=== PATIENT | male | born 1960 | race African-American/Black ===

== ENCOUNTER 2018-04-29 11:19 | Observation (INO) | payer BC ==
[~2018-04-29] VITALS: Ht 177.8 cm; Wt 66.5 kg
[~2018-04-29 11:19] MED LIST: FLEXERIL10 MG PO; GABAPENTIN100 MG PO; LEVITRA10 MG PO; LORTAB 7.5 PO; LOTRISONE; LOTRISONE EX; LOTRISONE TOP; MOTRIN800 MG/TAB PO; NAPROSYN500 MG OR; OMEPRAZOLE20 MG PO; PROBENECID500 MG PO; ROBAXIN-750750 MG PO; TIZANIDINE HCL4 MG PO; VIAGRA100 MG PO
--- NOTE | 2018-04-29 11:40 | NUR ---
PT ARRIVED TO MS2 VIA WHEELCHAIR BY VOLUNTEER. PT ALERT AND ORIENTED X3, AMBULATORY. PT ORIENTED TO ROOM AND CALL LIGHT, GOWN PROVIDED AND PT ALLOWED TO CHANGE IN BATHROOM. DISCUSSED POC, RESP EVEN AND UNLABORED. NO SIGNS OF DISTRESS NOTED, RESP EVEN AND UNLABORED. AWS SOLUTION ARCHITECT TO BEDSIDE FOR LAB DRAW. CALL LIGHT IN REACH,CONTINUE TO MONITOR.
[2018-04-29 11:50] VITALS: BP 127/98
[2018-04-29 12:18] LABS: HEMATOCRIT 43.9 % (39.0-50.0); HEMOGLOBIN 15.1 g/dl (14.0-18.0); IMMATURE GRANULOCYTES 0.2 % (0.0-5.0); MEAN CELL VOLUME 91.6 fL CALC (80.0-100.0); MEAN CORPUSCULAR HGB 31.5 pG CALC (26.0-32.0); MEAN CORPUSCULAR HGB CONC 34.4 g/L CALC (32.0-36.0); NEUT# 5.11 thou/uL (1.82-7.42); RED BLOOD COUNT 4.79 mill/uL (4.70-6.10)
[2018-04-29 12:32] LABS: ALBUMIN 4.5 g/dL (3.2-5.0); ALKALINE PHOSPHATASE 84 u/l (38-126); ANION GAP 16 (6-22 (CALC)); BILIRUBIN, TOTAL 0.5 mg/dL (0.0-1.4); BUN 9 mg/dL (9-20); BUN/CREATININE RATIO 10 (12-20 (CALC)); CARBON DIOXIDE 24 mmol/l (22-30); CHLORIDE 105 mmol/l (95-108); CREATININE 0.8 mg/dL (0.7-1.3); GFR > 60 ML/MIN (>=60 (CALC)); GFR FOR AFR.AMER. > 60 ML/MIN (>=60 (CALC)); MAGNESIUM 2.1 mg/dL (1.6-2.3); POTASSIUM 3.8 mmol/l (3.5-5.1); SGOT/AST 25 u/l (17-59); SODIUM 141 mmol/l (137-146); TOTAL PROTEIN 8.4 g/dL (6.3-8.2)
--- NOTE | 2018-04-29 12:47 | NUR ---
PT TAKEN DOWN FOR ECHO, CONTINUE TO MONITOR.
--- NOTE | 2018-04-29 13:17 | NUR ---
PT RETURNED FROM RADIOLOGY EXAMS. VISITOR AT BEDSIDE.
[2018-04-29] MEDS ORDERED: VALIUM5 MG PO (14:25)
[2018-04-29 15:39] VITALS: BP 133/85
--- NOTE | 2018-04-29 17:17 | NUR ---
ER CALLED CLINCAL SUPPORT TEAM HR SUSTAINED AT 218. SUPPORT TEAM ARRIVED EKG OBTAINED. UNABLE TO GET BP BUT HR 220, PT DENIES ANY CP. VAGAL MANEAVER ATTEMPTED HR STILL ELEVATED. CARATOID MASSAGE @ 1720. CRASH CART TO BEDSIDE AND PT PLACED ON PADS. CALLED @ 1723 NOTIFIED OF CLINICAL SUPPORT TEAM TO BEDSIDE, HR 218, ORDERS FOR ADENOSINE 6MG AND TRANSFER PT TO ICU, ADENOSINE IV PUSH GIVEN BY JOHN JONES @ 1725. HR DOWN TO 120. PT STABLE TRANSFERED TO ICU BED 5. REPORT GIVEN TO ESTER JONES.
[2018-04-29 17:30] VITALS: BP 142/87
--- NOTE | 2018-04-29 17:30 | NUR ---
PT TRANSFERRED TO ICU BED 5 FROM MED SURG POST ADENOSINE ADMINSITRATION FOR SVT RATE 200+, PT IS ALERT AND ORIENTED, DENIES PAIN OR DISCOMFORT, LUNGS CLEAR AND NO SHORTNESS OF BREATH OR DISTRESS NOTED, ABD SOFT AN DBS ACTIVE, SKIN WARM AND DRY WITH NO BREAKDOWN, NO EDEMA NOTED, BP STABLE SEE INTERVENTIONS TELE CURRENTLY READING SR AT RATE INT HE 80-100'S TEMP 99.1 IV ACCESS 20G IN RFA SALINE LOCKED. ALL MONITORING EQUIPMENT EXPLAINED PRIOR TO APPLICATION, ORIENTED TO ROOM AND UNIT, SAFETY MEASURES INTRODUCED, WILL CONTINUE TO MONITOR.
[2018-04-29 17:45] VITALS: BP 140/97
--- NOTE | 2018-04-29 17:45 | NUR ---
EDUARDO PIERSON IN TO SEE PATIENT, PLAN OF CARE DISCUSSED INCLUDING TRANSFER TO [facility], PT VERBALIZES AGREEANCE AND UNDERSTANDING, WILL CONTINUE TO MONITOR
--- NOTE | 2018-04-29 17:45 | NUR ---
SPOKE WITH (HOSPITALIST AT [facility] [phone]) VIA TELEPHONE FOR TRANSFER OF PATIENT.
--- NOTE | 2018-04-29 17:55 | NUR ---
DAUGHTER AND SPOUSE AT BEDSIDE AND AWARE OF PLANNED TRANSFER.
--- NOTE | 2018-04-29 17:57 | NUR ---
ATTEMPTED TO CALL FAMILY TO NOTIFY OF TRANSFER, NO ANSWER.
--- NOTE | 2018-04-29 17:59 | NUR ---
HOUSE SUPERVIOR CALLED FROM [facility], PT ACCEPETANCE VERBALIZED AND BED ASSIGNMENT GIVEN ROOM 321 BED 2 IN PCU IS ACCEPTING PHYSICIAN WITH DR. GOMEZ CONSULTING DESKTOP OPERATOR
[2018-04-29 18:00] VITALS: BP 126/83
[2018-04-29 18:15] VITALS: BP 119/91
--- NOTE | 2018-04-29 18:22 | NUR ---
PT HAS HAD FEWQ PERIODS OF HEART RATE INCREASING TO 130'S LASTING <60 SECONDS, PT DENIES CHEST PAIN, DIZZINESS SHORTNESS OF BREATH OR ANY COMPLAINTS.
--- NOTE | 2018-04-29 19:00 | NUR ---
[facility] ARRIVES TO TRANSPORT PATIENT TO [facility].
--- NOTE | 2018-04-29 19:15 | NUR ---
PT. LEFT VIA [place] [place] AT THIS TIME.
--- NOTE | 2018-04-29 19:35 | NUR ---
REPORT CALLED TO KAREN REED AT [facility].
== END 2018-04-29 19:15 | DRG 309 ==
LOC: ICU 11:19 → MS2 11:19 → ICU 17:30
PROVIDERS: ADMIT Internal Medicine Geriatric Medicine; ATTEND Internal Medicine Geriatric Medicine
DX: I49.1 Atrial premature depolarization (principal); I47.1 Supraventricular tachycardia; I49.3 Ventricular premature depolarization; I10 Essential (primary) hypertension; M19.90 Unspecified osteoarthritis, unspecified site; F41.1 Generalized anxiety disorder; G89.29 Other chronic pain; M54.5 Low back pain
CPT/HCPCS: G0378; G0379; J0153

== ENCOUNTER 2018-10-26 16:03 | Observation (INO) | payer BC ==
[~2018-10-26] VITALS: Ht 177.8 cm; Wt 74.0 kg
[~2018-10-26 16:03] MED LIST changes: +VALIUM5 MG PO
[2018-10-26 16:18] VITALS: BP 147/88
[2018-10-26 16:51] LABS: HEMATOCRIT 39.4 % (39.0-50.0); HEMOGLOBIN 13.2 g/dl (14.0-18.0); MEAN CELL VOLUME 92.9 fL CALC (80.0-100.0); MEAN CORPUSCULAR HGB 31.1 pG CALC (26.0-32.0); MEAN CORPUSCULAR HGB CONC 33.5 g/L CALC (32.0-36.0); RED BLOOD COUNT 4.24 mill/uL (4.70-6.10); RED CELL DISTRI WIDTH 14.7 % (11.5-15.5)
--- NOTE | 2018-10-26 17:00 | NUR ---
PT AMBULATED TO MS2; REGISTRATION STAFF FOR ASSISTANCE. VS DONE. PT A/O X3. SPEECH IS CLEAR. PERRLA. RESP EVEN AND UNLABORED. LUNG SOUNDS CLEAR. BOWEL SOUNDS ACTIVE X4. STRONG RADIAL AND PEDAL PULSES. #22 RH STATRTED BY KAREN HANNON. JACINDA MUSTAFA. IV SITE HEALTHY. PT HAS +2 EDEMA TO LT FOOT; SMALL TEAR BETWEEN LAST TWO TOES. PT DENIES ANY PAIN OR NEEDS. POC DISCUSSED. SAFETY PRECAUTIONS IN PLACE. CALL LIGHT IN REACH. WILL CONTINUE TO MONITOR.
[2018-10-26 17:17] LABS: ANION GAP 10 (6-22 (CALC)); BUN 11 mg/dL (9-20); BUN/CREATININE RATIO 13 (12-20 (CALC)); CARBON DIOXIDE 26 mmol/l (22-30); CHLORIDE 106 mmol/l (95-108); CREATININE 0.8 mg/dL (0.7-1.3); GFR > 60 ML/MIN (>=60 (CALC)); GFR FOR AFR.AMER. > 60 ML/MIN (>=60 (CALC)); POTASSIUM 3.9 mmol/l (3.5-5.1); SODIUM 138 mmol/l (137-146)
--- NOTE | 2018-10-26 18:10 | NUR ---
PT TRANSPORT TO XRAY VIA WC IN STABLE CONDITION
[2018-10-26 18:20] LABS: URINE BILIRUBIN - DIPSTICK NEGATIVE (NEGATIVE); URINE BLOOD DIPSTICK NEGATIVE (NEGATIVE); URINE COLOR YELLOW; URINE GLUCOSE - DIPSTICK NEGATIVE (NEGATIVE); URINE KETONE NEGATIVE (NEGATIVE); URINE LEUK ESTERASE NEGATIVE (NEGATIVE); URINE NITRITE - DIPSTICK NEGATIVE (Negative); URINE PH 5.5 (4.5-8.0); URINE PROTEIN - DIPSTICK NEGATIVE (NEG-TRACE); URINE SPECIFIC GRAVITY 1.025; URINE UROBILINOGEN - DIPSTICK 0.2 E.U./dL (0.2)
[2018-10-26 19:00] VITALS: BP 137/78
--- NOTE | 2018-10-26 19:37 | NUR ---
REPORT FROM ALEXANDRA CHAPMAN. PT RESTING IN BED. ALERT AND ORIENTED. PT DENIES ANY PAIN OR DISCOMFORT. NO DISTRESS NOTED. RESPIRATIONS EVEN AND UNLABORED. IV SITE APPEARS HEALTHY. DISCUSSED POC. PT VERBALIZED UNDERSTANDING. CALL LIGHT WITHIN REACH. WILL CONTINUE TO MONITOR.
--- NOTE | 2018-10-26 23:26 | NUR ---
PT RESTING IN BED WITH EYES CLOSED. NO DISTRESS NOTED. CALL LIGHT WITHIN REACH. WILL CONTINUE TO MONITOR.
--- NOTE | 2018-10-27 03:34 | NUR ---
MEDICATED FOR PAIN IN LEFT FOOT 10/05. PT REFUSED TO ELEVATE ON PILLOW, FOOT OF BED ELEVATED AT THIS TIME. NO DISTRESS NOTED. CALL LIGHT WITHIN REACH. WILL CONTINUE TO MONITOR.
[2018-10-27 04:03] VITALS: BP 126/62
[2018-10-27 06:00] LABS: HEMATOCRIT 38.8 % (39.0-50.0); HEMOGLOBIN 12.6 g/dl (14.0-18.0); IMMATURE GRANULOCYTES 0.3 % (0.0-5.0); MEAN CELL VOLUME 94.4 fL CALC (80.0-100.0); MEAN CORPUSCULAR HGB 30.7 pG CALC (26.0-32.0); MEAN CORPUSCULAR HGB CONC 32.5 g/L CALC (32.0-36.0); NEUT# 4.64 thou/uL (1.82-7.42); RED BLOOD COUNT 4.11 mill/uL (4.70-6.10); RED CELL DISTRI WIDTH 14.9 % (11.5-15.5)
[2018-10-27 06:25] LABS: ALKALINE PHOSPHATASE 77 u/l (38-126); ANION GAP 7 (6-22 (CALC)); BILIRUBIN, TOTAL 0.5 mg/dL (0.0-1.4); BUN 6 mg/dL (9-20); BUN/CREATININE RATIO 8 (12-20 (CALC)); CARBON DIOXIDE 28 mmol/l (22-30); CHLORIDE 109 mmol/l (95-108); CREATININE 0.8 mg/dL (0.7-1.3); GFR > 60 ML/MIN (>=60 (CALC)); GFR FOR AFR.AMER. > 60 ML/MIN (>=60 (CALC)); POTASSIUM 4.2 mmol/l (3.5-5.1); SGOT/AST 18 u/l (17-59); SODIUM 141 mmol/l (137-146)
[2018-10-27 06:30] LABS: ALBUMIN 3.4 g/dL (3.2-5.0); TOTAL PROTEIN 6.6 g/dL (6.3-8.2)
[2018-10-27 08:00] VITALS: BP 119/84
--- NOTE | 2018-10-27 08:00 | NUR ---
ASSESSMENT IS COMPLETED: IV SITE IS FREE FROM REDNESS OR EDEMA. HR IS REG,PULSES ARE STRONG X4, ABD IS SOFT WITH ACTIVE BS. BREATH SOUNDS ARE CLEAR, BILATERALLY, NO C/O SOB, LEFT FOOT HAS +1 PITTING EDEMA NOTED. SOME WARMTH TO THE TOUCH, PULSES ARE STRONG ON FOOT. CONTINUE TO OBSERVE AND MONITOR.
--- NOTE | 2018-10-27 08:36 | NUR ---
S: JULIO THOMAS is a 58 M who presents with cellulitis and abscess of foot. He has a history of HTN, Bronchitis, GERD, and chronic low back pain. All medications in patient's chart were reviewd. O: VS: BP119/84 mmHg, P:84bpm, RR:17bpm,T:98.2 F W <74kg>, HT<70inches>, Scr=<0.8mg/dL>,CrCl= <101.4ml/min> A: Wound culture preliminary showed moderate gram negative rods. P: Patient is on Vancomycin 1GM IV x1 dose. Vancomycin ordered for pharmacy to dose. Start Vancomycin 1,250mg IV Q12H. Vancomycin trough is drawn before the 4th dose on 10/28/18 @ 2000 Vancomycin goal trough is between <10-15 mcg/ml>. Pharmacy will follow and or advise on antibiotics use as needed.
--- NOTE | 2018-10-27 08:52 | NUR ---
DR. CLARK STATED THAT HE ALREADY SPOKE TO DR. SIDDIQUI THIS MORNING ABOUT THE CONSULTATION FOR THIS PATIENT. HE STATED THIS @0848 AM AND THE CONSULTATION WAS FOR ABCESS/CELLULITUS OF THE LEFT FOOT.
--- NOTE | 2018-10-27 09:16 | NUR ---
DR. CLARK CHANGED THE PHYSICIAN FOR THIS CONSULTATION SO IT IS NOW FOR DR. CUELLO. I LEFT A MESSAGE ON HIS PORTRAIT CONSULTANT VOICEMAIL TO VERIFY THE CONSULTATION AND WILL WAIT FOR A CALL BACK. I CALLED HER TWICE @0914 AM.
--- NOTE | 2018-10-27 10:45 | NUR ---
PT WENT FOR AN MRI OF THE FOOT. VIA WC ACCOMPANIED BY STAFF
--- NOTE | 2018-10-27 11:45 | NUR ---
PT RETURNED FROM HAVING MRI COMPLETED: VIA WC WITH STAFF. PHARMACY STUDENTS CAME AND SPOKE WITH PT RE: MEDICATIONS.
--- NOTE | 2018-10-27 12:00 | NUR ---
PT IS RELAXING IN BED WITH NO DISTRESS NOTED. CONTINUE TO OSBERVE AND MONITOR.
--- NOTE | 2018-10-27 12:40 | NUR ---
IN TO PROVIDE INCISION AND DRAINAGE OF THE LEFT FOOT. MODERATE AMOUNT OF PUSS AND BLOOD CAME OUT CULTURE SENT FOR TESTING. PT TOLERATED WELL
[2018-10-27 14:50] VITALS: BP 119/77
--- NOTE | 2018-10-27 16:14 | NUR ---
PT IS RELAXING IN BED WITH NO DISTRESS NOTED. IV SITE IS FREE FROM REDNESS OR EDEMA. DRESSING ON LEFT FOOT IS CDI. WILL HAVE ORDERS FOR DRESSING CHANGE TO START TOMORROW ROBERT BUTLER. CUATE/
--- NOTE | 2018-10-27 18:55 | NUR ---
REPORT RECEIVED FROM ADELA LUEVANO. PT RESTING IN BED. NO S/S OF DISTRESS AT THIS TIME. WILL CONTINUE TO MONITOR.
[2018-10-27 19:00] VITALS: BP 132/70
--- NOTE | 2018-10-27 19:42 | NUR ---
PT RESTING IN BED ALERT AND ORIENTED. ASSESSMENT COMPLETEED. RESPIRATIONS EVEN AND UNLABORED ON RA. LUNGS SOUND CLEAR. DRESSING TO LEFT FOOT CLEAN DRY AND INTACT. PT STATES "MY LEFT FOOT THROBS FROM TIME TO TIME BUT I'M NOT IN ANY PAIN AT THIS TIME". CALL RIVERS IS WITHIN REACH. WILL CONTINUE TO MONITOR.
--- NOTE | 2018-10-28 | NUR ---
PT RESTING IN BED WITH EYES CLOSED. RESPIRATIONS EVEN AND UNLABORED ON RA. NO S/S OF DISTRESS. SAFETY PRECAUTIONS IN PLACE. WILL CONTINUE TO MONITOR.
[2018-10-28 03:30] VITALS: BP 113/70
--- NOTE | 2018-10-28 04:20 | NUR ---
PT RESTING IN BED WITH EYES CLOSED. RESPIRATIONS EVEN AND UNLABORED ON RA. NO S/S OF DISTRESS AT THIS TIME. WILL CONTINUE TO MONITOR.
[2018-10-28 07:30] VITALS: BP 104/70
--- NOTE | 2018-10-28 07:30 | NUR ---
ASSESSMENT IS COMPLETED: IV SITE IS FREE FROM REDNESS OR EDEMA. HR IS REG, PULSES ARE STRONG X4, ABD IS SOFT WITH ACTIVE BS. DRESSING ON LEFT FOOT IS CDI. BREATH SOUNDS ARE CLEAR, BILATERALLY. CONTINUE TO OSBERVE AND MONITOR.
[2018-10-28 09:28] VITALS: BP 113/70
[2018-10-28] MEDS ORDERED: CIPROFLOXACN500 MG PO (11:53)
--- NOTE | 2018-10-28 12:00 | NUR ---
PT IV SITE IS FREE FROM REDNESS OR EDEMA. CONTINUE TO OSBERVE AND MONITOR.,
--- NOTE | 2018-10-28 15:00 | NUR ---
IV SITE DISCONITNUED CATHETER INTACT NO REDNESS OR EDEMA. DISCHARGE INSTRUCTIONS GIVEN AND VERBALIZED UNDERSTANDING. DRESSING CHANGED ON LEFT FOOT USING CLEAN TECHNIQUE PT TOLERATED WELL., Discharge instructions given. Patient verbalizes understanding of same. Discharged in stable condition via Wheelchair to Home with family. All belongings sent with pt.PT DROVE SELF HERE. INSTRUCTED ON THE DRESSING CHANGES AND SUPPLIES SENT WITH PT.
== END 2018-10-28 15:26 | disposition home or self-care (01) | DRG 603 ==
LOC: MS2 16:03
PROVIDERS: ADMIT Internal Medicine Geriatric Medicine; ATTEND Internal Medicine Geriatric Medicine
PROC: 0H9NXZZ Drainage of Left Foot Skin, External Approach (ICD-10-PCS; principal; 2018-10-27)
DX: L02.612 Cutaneous abscess of left foot (principal); L03.116 Cellulitis of left lower limb; I47.1 Supraventricular tachycardia; I10 Essential (primary) hypertension; M54.5 Low back pain; G89.29 Other chronic pain; F41.1 Generalized anxiety disorder; K27.9 Peptic ulcer, site unspecified, unspecified as acute or chronic, without hemorrhage or perforation; K21.9 Gastro-esophageal reflux disease without esophagitis; B96.4 Proteus (mirabilis) (morganii) as the cause of diseases classified elsewhere; B96.5 Pseudomonas (aeruginosa) (mallei) (pseudomallei) as the cause of diseases classified elsewhere
CPT/HCPCS: G0378; G0379; J3370

== ENCOUNTER 2023-05-13 08:04 | Day surgery (SDC) | payer MEDICARE ==
[~2023-05-13] VITALS: Ht 177.8 cm; Wt 72.6 kg
[~2023-05-13 08:04] MED LIST changes: +CIPROFLOXACN500 MG PO; +CYCLOBENZAPRINE PO; +METHOCARBAMOL; +ROSUVASTATIN CA20 MG PO
[2023-05-13] MEDS ORDERED: LACTATED RINGER'S 1,000 ML IV ONE ×2 (08:09→12:40)
[2023-05-13] MEDS ORDERED: FAMOTIDINE 10MG/ML 2ML SDV IV ONE (08:09)
[2023-05-13] MEDS ORDERED: SODIUM CHLORIDE 0.9% 100 ML IV ONE (08:09)
[2023-05-13] MEDS ORDERED: ceFAZolin Sodium 2 GM/VIAL SDV ONE (08:09)
[2023-05-13] MEDS ORDERED: PERCOCET 5/325M1 TAB PO (10:32)
[2023-05-13] MEDS ORDERED: LIDOcaine HCl 1% (Local Anesth.) 20 ML VIAL ONE (10:34)
[2023-05-13] MEDS ORDERED: STERILE WATER FOR IRRIGATION 1,000 ML BTL IR ONE (11:52)
[2023-05-13] MEDS ORDERED: SODIUM CHLORIDE 1,000 ML BTL IR ONE (11:52)
[2023-05-13] MEDS ORDERED: ACETAMINOPHEN 100 ML IV ONE (11:52)
[2023-05-13] MEDS ORDERED: KETOROLAC TROMETHAMINE 30 MG/ML SDV ONE (12:33)
[2023-05-13 13:18] VITALS: BP 146/93
[2023-05-13] MEDS ORDERED: SUGAMMADEX SODIUM 200 MG/2 ML SDV IV ONE (15:03)
[2023-05-13] MEDS ORDERED: LIDOCAINE HCL 2% 2ML SDV IV ONE (15:03)
[2023-05-13] MEDS ORDERED: GLYCOPYRROLATE 0.2 MG/ML IV ONE (15:03)
[2023-05-13] MEDS ORDERED: SUCCINYLCHOLINE CHLORIDE 20 MG/ML 10ML VIAL IV ONE (15:03)
== END 2023-05-13 14:45 | disposition home or self-care (01) ==
LOC: ORM 08:04
PROVIDERS: ATTEND Surgery
PROC: 0YU54JZ Supplement Right Inguinal Region with Synthetic Substitute, Percutaneous Endoscopic Approach (ICD-10-PCS; principal; 2023-05-13)
DX: K40.90 Unilateral inguinal hernia, without obstruction or gangrene, not specified as recurrent (principal); D17.6 Benign lipomatous neoplasm of spermatic cord
CPT/HCPCS: C1781; J0131; J0690